=== PATIENT | female | born 1990 | race Caucasian/White ===

== ENCOUNTER 2016-06-25 11:02 | Emergency (ER) | payer SELFPAY ==
[2016-06-25] MEDS ORDERED: DIPHTH,PERTUSS(ACELL),TET 0.5 ML DISP.SYRIN IM ONE (11:03)
[2016-06-25 11:12] VITALS: BP 127/85; PULSE 73; TEMP 98.7; BMI 20.9
--- NOTE | 2016-06-25 11:23 | PDOC ---
History of Present Illness - General Chief Complaint: Laceration Stated Complaint: I CUT MY ARM Time Seen by Provider: 06/25/16 11:02 History Source: Patient Exam Limitations: No Limitations - History of Present Illness Initial Comments: 06/25/16 11:17 The patient is a 25-year-old female, with no significant past medical history, who presents to the emergency department with a laceration to her left ventral forearm. She sustained the laceration last night at approximately 11:30 PM, when a wine glass broke. She denies distal weakness or paresthesias. She reports mild pain at the area. There was no pulsatile bleeding. She denies fever, chills, sweats. She denies rash or discharge from the wound. She does not suspect any foreign body penetration as "the glass broke into large pieces." She cannot recall her last tetanus vaccination. Past History - Past Medical History Allergies/Adverse Reactions: Allergies Allergy/AdvReac Type Severity Reaction Status Date / Time No Known Allergies Allergy Verified 06/25/16 11:02 Home Medications: Ambulatory Orders NK [No Known Home Medication] 06/25/16 Other medical history: DENIES - Psycho/Social/Smoking Cessation Hx Anxiety: No Suicidal Ideation: No Smoking History: Current some day smoker Number of Cigarettes Smoked Daily: 1 Information on smoking cessation initiated: Yes 'Breaking Loose' booklet given: 06/25/16 Hx Alcohol Use: Yes Drug/Substance Use Hx: No Substance Use Type: Alcohol Review of Systems - Review of Systems Comments:: 06/25/16 11:18 CONSTITUTIONAL: Absent: fever, chills, fatigue MUSKULOSKELETAL: Absent: back pain, arthralgia, myalgia SKIN: Absent: rash NEURO: Absent: headache, dizziness *Physical Exam - Vital Signs Last Vital Signs Temp Pulse Resp BP Pulse Ox 98.7 F 73 16 127/85 100 06/25/16 11:02 06/25/16 11:02 06/25/16 11:02 06/25/16 11:02 06/25/16 11:02 - Physical Exam Comments: 06/25/16 11:18 GENERAL: Well-appearing, well-nourished. No apparent distress. HEENT: Normocephalic, atraumatic. PERRL, EOM intact. CARDIOVASCULAR: Normal S1, S2. Regular rate and rhythm. PULMONARY: Clear to auscultation bilaterally. EXTREMITIES: Normal ROM in all four extremities. No gross deformities. SKIN: There is an 8.5 cm laceration of the left ventral forearm, extending longitudinally. I explored the wound. There is no involvement of tendon or muscle. There is no pulsatile wound. Radial and ulnar arterial pulses on the left are symmetric to those on the right. Capillary refill on the left is symmetric to capillary refill on the right. Warm, dry. No rash NEUROLOGICAL: No focal neurological deficits. Specifically, no sensory or motor deficits in the distribution of the radial median and ulnar nerves. Procedures - Laceration/Wound Repair Left Arm Wound Length: 7.6 to 12.5 cm Wound Explored: clean Wound's Depth, Shape: superficial Irrigated w/ Saline: Yes Betadine Prep: Yes Anesthesia: 1% Lidocaine Amount of Anesthetic (ccs): 5 (ml) Wound Repaired With: Sutures Suture Size/Type: 4:0 Number of Sutures: 6 Layer Closure: No Sterile Dressing Applied: Yes Splint Applied: No Progress: 06/25/16 11:20 The patient was happy with the cosmetic result, and is aware that "she will have a scar." Medical Decision Making - Medical Decision Making 06/25/16 11:20 The patient is well-appearing and in no acute distress She is neurovascularly intact There is no evidence of tendon disruption Given that the wound was sustained approximately 12 hours ago, I had an extensive discussion about the risks and benefits of repairing the wound with sutures versus allowing it to heal by secondary intent. She was quite concerned about long-term cosmesis, and elected for repair, even though she understood that it would confer and increased risk of infection relative to allowing the wound to heal by secondary intent. Will prescribe a 3 day course of prophylactic antibiotics to decrease her likelihood of developing an infection. Clinical impression: Left forearm laceration I discussed the physical exam findings, ancillary test results and final diagnoses with the patient. I answered all of the patient's questions. The patient was satisfied with the care received and felt comfortable with the discharge plan and treatment plan. The patient will call their primary care physician within 24 hours to arrange follow-up and will return to the Emergency Department with any new, persistent or worsening symptoms. *DC/Admit/Observation/Transfer Diagnosis at time of Disposition: Forearm laceration - Discharge Dispostion Disposition: HOME Condition at time of disposition: Improved - Patient Instructions Printed Discharge Instructions: [facility] for Laceration Repair Additional Instructions: Return to the emergency department immediately with ANY new, persistent or worsening symptoms. You MUST call and follow up with your doctor tomorrow. Please make sure your doctor reviews the results of your emergency department evaluation. Stitches should be removed in 10 days. As we discussed, because you sustained this injury approximately 12 hours ago, there is an increased risk of infection. We have repaired the wound with sutures to improve the long-term cosmetic appearance, but it is very important that you monitor the wound for any signs of infection. Should the wound looks red, is hot, is painful, has discharge or if you have a fever, it is very important that you return to the emergency department immediately. - Post Discharge Activity Work/School Note: Back to Work
== END 2016-06-25 11:39 | disposition home or self-care (01) ==
LOC: FER 11:02
PROC: 0HQEXZZ Repair Left Lower Arm Skin, External Approach (ICD-10-PCS; principal; 2016-06-25)
DX: S51.812A Laceration without foreign body of left forearm, initial encounter (principal); W25.XXXA Contact with sharp glass, initial encounter; Y93.9 Activity, unspecified; Y92.9 Unspecified place or not applicable; F17.210 Nicotine dependence, cigarettes, uncomplicated
CPT/HCPCS: 12004-25; 90715; 99282-25